=== PATIENT | female | born 1945 | race Caucasian/White ===

== ENCOUNTER 2018-03-11 17:52 | Emergency (ER) | payer MEDICARE, BC ==
--- NOTE | 2018-03-11 18:26 | ER Document Report ---
ED Medical Screen (RME) - General Chief Complaint: Abnormal Lab Results Stated Complaint: ABNORMAL LABS Time Seen by Provider: 03/11/18 18:20 Notes: Patient is a 73-year-old female who presents after her primary care physician referred her to the ER due to her urine culture growing out Pseudomonas with multidrug resistance. She finished a course of Macrobid and is feeling much better. She is only having mild suprapubic pressure, but denies fevers, flank pain, nausea, vomiting or diarrhea. PE: Mild suprapubic tenderness, no CVA tenderness I have greeted and performed a rapid initial assessment of this patient. A comprehensive ED assessment and evaluation of the patient, analysis of test results and completion of the medical decision making process will be conducted by additional ED providers. TRAVEL OUTSIDE OF THE [place] IN LAST 30 DAYS: No - Related Data Allergies/Adverse Reactions: No Known Allergies Allergy (Verified 02/15/13 19:29) Past Medical History - Social History Chew tobacco use (# tins/day): No Frequency of alcohol use: None Drug Abuse: None - Past Medical History Cardiac Medical History: Reports: Hx Hypercholesterolemia, Hx Hypertension Endocrine Medical History: Reports: Hx Diabetes Mellitus Type 2 Renal/ Medical History: Denies: Hx Peritoneal Dialysis GI Medical History: Reports: Hx Crohn's Disease, Hx Diverticulitis, Hx Gastroesophageal Reflux Disease Musculoskeltal Medical History: Reports Hx Arthritis - RA Past Surgical History: Reports: Hx Bowel Surgery - 10 in bowel removed- diverticulitis, Hx Cholecystectomy, Hx Orthopedic Surgery - knee scope - Immunizations Immunizations up to date: Yes Hx Diphtheria, Pertussis, Tetanus Vaccination: Yes Physical Exam - Vital signs Vitals: Temp Pulse Resp BP Pulse Ox 98.4 F 72 20 123/85 95 03/11/18 18:05 03/11/18 18:05 03/11/18 18:05 03/11/18 18:05 03/11/18 18:05 Course - Vital Signs Vital signs: Temp Pulse Resp BP Pulse Ox 98.4 F 72 20 123/85 95 03/11/18 18:05 03/11/18 18:05 03/11/18 18:05 03/11/18 18:05 03/11/18 18:05
[2018-03-11 18:54] LABS: ABSOLUTE BASOPHILS # (AUTO) 0.1 10^3/uL (0.0-0.2); ABSOLUTE EOSINOPHILS # (AUTO) 0.1 10^3/uL (0.0-0.6); ABSOLUTE MONOCYTES (AUTO) 0.6 10^3/uL (0.1-1.4); EOSINOPHILS % (AUTO) 2.1 % (0-6); LYMPHOCYTES % (AUTO) 34.6 % (13-45); MEAN CORPUSCULAR HEMOGLOBIN 30.5 pg (27.0-33.4); MEAN CORPUSCULAR HGB CONC 34.2 g/dL (32.0-36.0); MEAN CORPUSCULAR VOLUME 89 fl (80-97); MONOCYTES % (AUTO) 10.8 % (3-13); PLATELET COUNT 247 10^3/uL (150-450); RED BLOOD COUNT 4.27 10^6/uL (3.72-5.28); RED CELL DISTRIBUTION WIDTH 13.2 % (11.5-14.0); SEGMENTED NEUTROPHILS % (AUTO) 51.5 % (42-78); TOTAL CELLS COUNTED % (AUTO) 100 %; WHITE BLOOD COUNT 5.9 10^3/uL (4.0-10.5)
[2018-03-11 18:57] LABS: APPEARANCE,URINE CLEAR; BILIRUBIN,URINE NEGATIVE (NEGATIVE); COLOR,URINE STRAW; GLUCOSE, URINE NEGATIVE (NEGATIVE); KETONES,URINE NEGATIVE (NEGATIVE); LEUKOCYTE ESTERASE,URINE NEGATIVE (NEGATIVE); NITRITE,URINE NEGATIVE (NEGATIVE); PROTEIN,URINE NEGATIVE (NEGATIVE); UROBILINOGEN,URINE NEGATIVE mg/dL (<2.0)
[2018-03-11 19:20] LABS: ALANINE AMINOTRANSFERASE 27 U/L (9-52); ALBUMIN 4.2 g/dL (3.5-5.0); ALKALINE PHOSPHATASE 54 U/L (38-126); ANION GAP 14 (5-19); ASPARTATE AMINO TRANSFERASE 26 U/L (14-36); BILIRUBIN,DIRECT 0.3 mg/dL (0.0-0.4); BILIRUBIN,TOTAL 0.5 mg/dL (0.2-1.3); BLOOD UREA NITROGEN 11 mg/dL (7-20); CALCIUM 9.9 mg/dL (8.4-10.2); CARBON DIOXIDE 26 mmol/L (22-30); CHLORIDE 106 mmol/L (98-107); GLUCOSE 100 mg/dL (75-110); SODIUM 145.5 mmol/L (137-145); TOTAL PROTEIN 7.8 g/dL (6.3-8.2)
--- NOTE | 2018-03-11 20:06 | ER Document Report ---
ED General - General Chief Complaint: Abnormal Lab Results Stated Complaint: ABNORMAL LABS Time Seen by Provider: 03/11/18 18:20 TRAVEL OUTSIDE OF THE [place] IN LAST 30 DAYS: No - HPI Patient complains to provider of: Possible UTI Notes: Patient coming in for evaluation of possible UTI. Patient states that his UTI has been on Macrobid went to her PCPs office and had a urine culture sent with results today showing [id number] Pseudomonas and therefore was encouraged to come to the ER for further evaluation and possible admission. Patient otherwise upon my evaluation feels well and states that she otherwise has not had any complaints possible slight pressure in the bladder area. Denies dysuria fever chills nausea vomiting diarrhea. Patient states she does feel better than when she did before taking the antibiotics. Denies history of multiple UTIs. I was able to review the culture results showing 10-50,000 colonies of Pseudomonas - Related Data Allergies/Adverse Reactions: No Known Allergies Allergy (Verified 03/11/18 18:26) Past Medical History - Social History Smoking Status: Never Smoker Chew tobacco use (# tins/day): No Frequency of alcohol use: None Drug Abuse: None Family History: Reviewed & Not Pertinent Patient has suicidal ideation: No Patient has homicidal ideation: No - Past Medical History Cardiac Medical History: Reports: Hx Hypercholesterolemia, Hx Hypertension Endocrine Medical History: Reports: Hx Diabetes Mellitus Type 2 Renal/ Medical History: Denies: Hx Peritoneal Dialysis GI Medical History: Reports: Hx Crohn's Disease, Hx Diverticulitis, Hx Gastroesophageal Reflux Disease Musculoskeltal Medical History: Reports Hx Arthritis - RA Past Surgical History: Reports: Hx Bowel Surgery - 10 in bowel removed- diverticulitis, Hx Cholecystectomy, Hx Orthopedic Surgery - knee scope - Immunizations Immunizations up to date: Yes Hx Diphtheria, Pertussis, Tetanus Vaccination: Yes Review of Systems - Review of Systems Constitutional: No symptoms reported EENT: No symptoms reported Cardiovascular: No symptoms reported Respiratory: No symptoms reported Gastrointestinal: No symptoms reported Genitourinary: Other - Abnormal labs bladder pressure Female Genitourinary: No symptoms reported Musculoskeletal: No symptoms reported Skin: No symptoms reported Hematologic/Lymphatic: No symptoms reported Neurological/Psychological: No symptoms reported -: Yes All other systems reviewed and negative Physical Exam - Vital signs Vitals: Temp Pulse Resp BP Pulse Ox 98.4 F 72 20 123/85 95 03/11/18 18:05 03/11/18 18:05 03/11/18 18:05 03/11/18 18:05 03/11/18 18:05 Interpretation: Normal - General General appearance: Appears well, Alert - HEENT Head: Normocephalic, Atraumatic Eyes: Normal Pupils: PERRL - Respiratory Respiratory status: No respiratory distress Chest status: Nontender Breath sounds: Normal Chest palpation: Normal - Cardiovascular Rhythm: Regular Heart sounds: Normal auscultation Murmur: No - Abdominal Inspection: Normal Distension: No distension Bowel sounds: Normal Tenderness: Nontender Organomegaly: No organomegaly - Back Back: Normal, Nontender - Extremities General upper extremity: Normal inspection, Nontender, Normal color, Normal ROM , Normal temperature General lower extremity: Normal inspection, Nontender, Normal color, Normal ROM , Normal temperature, Normal weight bearing. No: Thierno's sign - Neurological Neuro grossly intact: Yes Cognition: Normal Orientation: AAOx4 Samy Coma Scale Eye Opening: Spontaneous Samy Coma Scale Verbal: Oriented Samy Coma Scale Motor: Obeys Commands Samy Coma Scale Total: 15 Speech: Normal Motor strength normal: LUE, RUE, LLE, RLE Sensory: Normal - Psychological Associated symptoms: Normal affect, Normal mood - Skin Skin Temperature: Warm Skin Moisture: Dry Skin Color: Normal Course - Re-evaluation Re-evalutation: 03/11/18 23:01 Patient with no white count no fever with a urinalysis showing no nitrites no leukocyte esterase only 3 white blood cells and trace bacteria. At this time do not think this is consistent with infection however I do think it is prudent to reculture this urine. I did have a lengthy discussion with the patient and family at bedside I do not think at this time with lab work showing no leukocytosis and the patient being afebrile I would not admit her to the hospital for IV antibiotics I wait for the second culture results. I explained to the patient that we will call her with the culture results in approximately 48-72 hours. Patient did state understanding was grateful for care 03/11/18 23:01 - Vital Signs Vital signs: Temp Pulse Resp BP Pulse Ox 97.6 F 68 18 141/85 H 96 03/11/18 20:15 03/11/18 20:15 03/11/18 20:15 03/11/18 20:15 03/11/18 20:15 - Laboratory Result Diagrams: 03/11/18 18:45 03/11/18 18:45 Laboratory results interpreted by me: 03/11/18 18:45 Sodium 145.5 H Discharge - Discharge Clinical Impression: Abnormal laboratory test result Condition: Good Disposition: HOME, SELF-CARE Additional Instructions: Your urine culture from your primary care physician shows Pseudomonas however there is very few colonies on this report. Your laboratory studies today did not show any elevation in your white count your urinalysis does not show any signs of infection at this time. Your afebrile you have no signs of serious infection urinary tract infection or sepsis. I recommend that we repeat your urine culture this will be available in approximately 48-72 hours. If there is positive growth we will call you. In the meantime return to ER symptoms worsen follow-up with your primary care physician return to ER for a fever greater than 101 Referrals: ANNABELLE BARRAZA PA-C [Primary Care Provider] - Follow up as needed
[2018-03-11 20:16] VITALS: BP 141/85
== END 2018-03-11 20:16 | disposition home or self-care (01) ==
LOC: ER 17:52
DX: R82.90 Unspecified abnormal findings in urine (principal); E78.00 Pure hypercholesterolemia, unspecified; I10 Essential (primary) hypertension; E11.9 Type 2 diabetes mellitus without complications; Z87.440 Personal history of urinary (tract) infections; Z90.49 Acquired absence of other specified parts of digestive tract
CPT/HCPCS: 36415; 80053; 81001; 85025; 87086; 87088; 87186; 99283

== ENCOUNTER 2018-08-25 09:48 | Emergency (ER) | payer OTHER, MEDICARE, BC ==
[2018-08-25] MEDS ORDERED: ACETAMINOPHEN 325 MG TABLET PO ONE (10:11)
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
[2018-08-25 11:39] LABS: ABSOLUTE EOSINOPHILS # (AUTO) 0.1 10^3/uL (0.0-0.6); ABSOLUTE LYMPHOCYTES (AUTO) 1.3 10^3/uL (0.5-4.7); ABSOLUTE MONOCYTES (AUTO) 0.6 10^3/uL (0.1-1.4); ABSOLUTE NEUT (AUTO) 4.5 10^3/uL (1.7-8.2); BASOPHILS % (AUTO) 0.8 % (0-2); EOSINOPHILS % (AUTO) 1.5 % (0-6); HEMOGLOBIN 12.9 g/dL (12.0-15.5); MEAN CORPUSCULAR HEMOGLOBIN 30.9 pg (27.0-33.4); MEAN CORPUSCULAR VOLUME 91 fl (80-97); MONOCYTES % (AUTO) 9.8 % (3-13); PLATELET COUNT 242 10^3/uL (150-450); RED BLOOD COUNT 4.17 10^6/uL (3.72-5.28); RED CELL DISTRIBUTION WIDTH 13.5 % (11.5-14.0); SEGMENTED NEUTROPHILS % (AUTO) 68.9 % (42-78); TOTAL CELLS COUNTED % (AUTO) 100 %; WHITE BLOOD COUNT 6.6 10^3/uL (4.0-10.5)
[2018-08-25 11:57] LABS: ALANINE AMINOTRANSFERASE 20 U/L (9-52); ALBUMIN 3.9 g/dL (3.5-5.0); ALKALINE PHOSPHATASE 47 U/L (38-126); ANION GAP 11 (5-19); ASPARTATE AMINO TRANSFERASE 30 U/L (14-36); BILIRUBIN,DIRECT 0.2 mg/dL (0.0-0.4); BILIRUBIN,TOTAL 0.5 mg/dL (0.2-1.3); BLOOD UREA NITROGEN 14 mg/dL (7-20); CALCIUM 9.3 mg/dL (8.4-10.2); CARBON DIOXIDE 23 mmol/L (22-30); CHLORIDE 105 mmol/L (98-107); GLUCOSE 124 mg/dL (75-110); POTASSIUM 4.1 mmol/L (3.6-5.0); SODIUM 138.9 mmol/L (137-145); TOTAL PROTEIN 7.4 g/dL (6.3-8.2)
[2018-08-25 12:58] VITALS: BP 106/64
== END 2018-08-25 13:26 | disposition home or self-care (01) ==
LOC: ER 09:48
DX: S52.502A Unspecified fracture of the lower end of left radius, initial encounter for closed fracture (principal); S52.602A Unspecified fracture of lower end of left ulna, initial encounter for closed fracture; M54.2 Cervicalgia; R51 Headache; M25.561 Pain in right knee; M25.562 Pain in left knee; V87.7XXA Person injured in collision between other specified motor vehicles (traffic), initial encounter; I25.10 Atherosclerotic heart disease of native coronary artery without angina pectoris; I10 Essential (primary) hypertension; E11.9 Type 2 diabetes mellitus without complications
CPT/HCPCS: 36415; 70450; 72125; 80053; 85025; 99285

== ENCOUNTER 2018-09-03 10:55 | Observation (INO) | payer OTHER, MEDICARE, BC ==
[2018-08-31 13:05] LABS: HEMATOCRIT 36.6 % (36.0-47.0); HEMOGLOBIN 12.6 g/dL (12.0-15.5); MEAN CORPUSCULAR HEMOGLOBIN 31.6 pg (27.0-33.4); MEAN CORPUSCULAR HGB CONC 34.5 g/dL (32.0-36.0); MEAN CORPUSCULAR VOLUME 91 fl (80-97); PLATELET COUNT 318 10^3/uL (150-450); RED CELL DISTRIBUTION WIDTH 12.8 % (11.5-14.0); WHITE BLOOD COUNT 6.9 10^3/uL (4.0-10.5)
[2018-08-31 13:17] LABS: APPEARANCE,URINE CLEAR; BILIRUBIN,URINE NEGATIVE (NEGATIVE); COLOR,URINE YELLOW; GLUCOSE, URINE NEGATIVE (NEGATIVE); KETONES,URINE NEGATIVE (NEGATIVE); LEUKOCYTE ESTERASE,URINE NEGATIVE (NEGATIVE); NITRITE,URINE NEGATIVE (NEGATIVE); PROTEIN,URINE NEGATIVE (NEGATIVE); URINE SPECIFIC GRAVITY 1.028; UROBILINOGEN,URINE NEGATIVE mg/dL (<2.0)
--- NOTE | 2018-08-31 13:19 | RADIOLOGY REPORT (SQ) ---
EXAM DESCRIPTION: CHEST PA/LATERAL COMPLETED DATE/TIME: 08/31/2018 12:51 pm REASON FOR STUDY: PRE-OP COMPARISON: None. EXAM PARAMETERS: NUMBER OF VIEWS: two views TECHNIQUE: Digital Frontal and Lateral radiographic views of the chest acquired. RADIATION DOSE: NA LIMITATIONS: none FINDINGS: LUNGS AND PLEURA: No opacities, masses or pneumothorax. No pleural effusion. MEDIASTINUM AND HILAR STRUCTURES: No masses or contour abnormalities. HEART AND VASCULAR STRUCTURES: Heart normal size. No evidence for failure. BONES: No acute findings. HARDWARE: None in the chest. OTHER: No other significant finding. IMPRESSION: NO SIGNIFICANT RADIOGRAPHIC FINDING IN THE CHEST. TECHNICAL DOCUMENTATION: JOB ID: [id number] [employer]- All Rights Reserved Reading location - IP/workstation name: [email or web address]
[2018-08-31 13:22] LABS: ANION GAP 12 (5-19); BLOOD UREA NITROGEN 12 mg/dL (7-20); CALCIUM 10.2 mg/dL (8.4-10.2); CARBON DIOXIDE 30 mmol/L (22-30); CHLORIDE 103 mmol/L (98-107); GLUCOSE 150 mg/dL (75-110); POTASSIUM 4.1 mmol/L (3.6-5.0); SODIUM 145.2 mmol/L (137-145)
--- NOTE | 2018-09-01 08:22 | EKG REPORT ---
SEVERITY:- ABNORMAL ECG - SINUS RHYTHM MULTIFORM VENTRICULAR PREMATURE COMPLEXES INFERIOR INFARCT, AGE INDETERMINATE : Confirmed by: Candy Sales MD 01-Sep-2018 08:22:16
[~2018-09-03 10:55] MED LIST: CEFAZOLIN 2 GM/D5W RTU 2 GM/50 ML RTUPB IV PRN; LIDOCAINE 0.5% INJ-PF (5 MG/ML) 50 ML SDV SUBCUT PRN; NORMAL SALINE 1000 ML 1,000 ML IV PRN; SUCCINYLCHOLINE CHLORIDE INJ 200 MG/10 ML VIAL ONE
[2018-09-03] MEDS ORDERED: CEFAZOLIN 2 GM/D5W RTU 2 GM/50 ML RTUPB IV ONE (12:39)
[2018-09-03] MEDS ORDERED: MIDAZOLAM 2 MG/2 ML INJ ONE (12:56)
[2018-09-03] MEDS ORDERED: HYDROMORPHONE HCL INJ/PF 2 MG/ML AMPULE ONE (12:56)
[2018-09-03] MEDS ORDERED: FENTANYL CITRATE INJ/PF 100 MCG/2 ML AMPUL ONE (12:56)
[2018-09-03] MEDS ORDERED: ACETAMINOPHEN 1,000 MG/100 ML RTUPB IV ONE (12:57)
[2018-09-03] MEDS ORDERED: PROPOFOL INJ 200 MG/20 ML VIAL IV ONE (12:57)
[2018-09-03] MEDS: BUPIVACAINE HCL 0.5 % INJ/PF 30 ML SDV ONE ×2 (13:18→13:55)
[2018-09-03] MEDS ORDERED: EPHEDRINE SULFATE INJ 50 MG/1 ML AMPULE ONE (13:26)
[2018-09-03] MEDS ORDERED: FENTANYL CITRATE INJ/PF 100 MCG/2 ML AMPUL IV PRN ×3 (14:17→15:38)
[2018-09-03] MEDS ORDERED: PROMETHAZINE HCL INJ 25 MG/1 ML VIAL IV PRN (14:17)
[2018-09-03] MEDS ORDERED: DIPHENHYDRAMINE HCL 50 MG/ML VIAL IV PRN (14:17)
[2018-09-03] MEDS ORDERED: ONDANSETRON HCL INJ/PF 4 MG/2 ML SDV IV PRN ×3 (14:17→18:05)
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
--- NOTE | 2018-09-03 15:16 | RADIOLOGY REPORT (SQ) ---
EXAM DESCRIPTION: NO CHG FLUORO; WRIST LEFT 3 VIEWS COMPLETED DATE/TIME: 09/03/2018 3:05 pm REASON FOR STUDY: ORIF LEFT WRIST ASST W/ FLUORO IN OR S52.532A COLLES' FRACTURE OF LEFT RADIUS, IN IT FOR CLOS FX S52.692A OTH FRACTURE OF LOWER END OF LEFT ULNA, INIT FOR CL COMPARISON: None. FLUOROSCOPY TIME: 68 seconds 5 images saved to PACS. TECHNIQUE: Intra-operative images acquired during surgical procedure to evaluate progress. NUMBER OF IMAGES: 5 LIMITATIONS: None. FINDINGS: Selected images from plate and screw fixation of distal radial fracture. IMPRESSION: IMAGE(S) OBTAINED DURING PROCEDURE. COMMENT: Quality ID 145: Final reports for procedures using fluoroscopy that document radiation exp osure indices, or exposure time and number of fluorographic images (if radiation exposure indices are not available) Please consult full operative report of the attending physician for description of the procedure. TECHNICAL DOCUMENTATION: JOB ID: [id number] [employer]- All Rights Reserved Reading location - IP/workstation name: [email or web address]
[2018-09-03] MEDS: PROMETHAZINE HCL INJ 25 MG/1 ML VIAL ONE ×2 (15:27→17:00)
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
--- NOTE | 2018-09-03 15:40 | Discharge Summary ---
Discharge Summary (SDC) - Discharge Final Diagnosis: Right >3 Part Intra-articular Distal Radius Fracture Comminuted Distal Ulna Fracture Date of Surgery: 09/03/18 Discharge Date: 09/03/18 Condition: Good Treatment or Instructions: Schedule Follow Up w/ Dr. Ever Rothman @ [facility] to be seen in 10-14 days or as scheduled [place]: Busy: [place]: Ice and elevate Keep splint clean/dry/intact. If your fingers become numb please unwrap the [place] wrap but leave the splint in place, if the sensation does not return within 30 minutes please return to the emergency department. May begin finger range of motion attempting to make full fist. Please use ibuprofen (Motrin or Advil) 600-800 mg every 8 hours as needed for pain or fever. You may also use acetaminophen (Tylenol) 1000 mg every 4-6 hours as needed for pain or fever. Please be aware that many medications contain acetaminophen, do not exceed a total of 1000 mg of acetaminophen every 6 hours. If ibuprofen and acetaminophen are not sufficient for your pain you may take the Percocet/[place]. Please be aware that the Percocet/[place] [address] does contain Tylenol. Stool softener of choice when on pain medication. Referrals: ANNABELLE BARRAZA PA-C [Primary Care Provider] - Discharge Diet: As Tolerated Respiratory Treatments at Home: Deep Breathing/Coughing Discharge Activity: No Lifting Over 10 Pounds, No Lifting/Push/Pulling Report the Following to Your Physician Immediately: Fever over 101 Degrees, Unusual Bleeding, Redness, Swelling, Warmth, Increased Soreness
[2018-09-03] MEDS ORDERED: ONDANSETRON HCL INJ/PF 4 MG/2 ML SDV ONE (15:51)
--- NOTE | 2018-09-03 17:53 | Progress Note ---
Provider Note Provider Note: Patient had issues with postoperative nausea and hypoxemia requiring oxygen. At that point decision was made to admit the patient overnight for observation. We will consult the hospitalist for their recommendations.
--- NOTE | 2018-09-03 19:06 | EKG REPORT ---
SEVERITY:- ABNORMAL ECG - SINUS RHYTHM VENTRICULAR TRIGEMINY PROBABLE INFERIOR INFARCT, AGE INDETERMINATE : Confirmed by: Candy Sales MD 03-Sep-2018 19:06:19
[2018-09-03] MEDS ORDERED: HYDROMORPHONE HCL INJ/PF 2 MG/ML AMPULE IV PRN (19:53)
[2018-09-03] MEDS ORDERED: DEXTROSE 50%-WATER 25 GM/50 ML DISP.SYRIN IV PRN ×2 (19:55)
[2018-09-03] MEDS ORDERED: DEXTROSE 40% GEL 15 GM TUBE PO PRN ×2 (19:55)
[2018-09-03] MEDS ORDERED: GLUCAGON,HUMAN RECOMB 1 MG INJ IM PRN (19:55)
[2018-09-03] MEDS ORDERED: INSULIN LISPRO 100 UNIT/ML 3 ML VIAL SUBCUT PRN (19:55)
[2018-09-03] MEDS: HYDROCODONE/ACETAMINOPHEN 5-325 MG TABLET PO PRN (20:42)
[2018-09-03] MEDS: METFORMIN HCL 500 MG TABLET PO SCH (20:46)
[2018-09-03] MEDS: HEPARIN SOD (PORCINE) 5,000 UNIT/ML 1 ML SYRINGE SUBCUT SCH (21:28)
--- NOTE | 2018-09-03 22:10 | PDOC CONSULTATION ---
Consultation Consult Date: 09/03/18 Attending physician:: PEREZ MARTINEZ Consult reason:: Post op nausea and hypoxia History of Present Illness Admission Date/PCP: 09/03/18 19:18 ANNABELLE BARRAZA PA-C Patient complains of: Nausea and left upper extremity pain History of Present Illness: AJ STEPHENSON is a 73 year old female admitted under the orthopedic surgery. Patient came initially as an outpatient for orthopedic surgery as she has a right distal radius fracture; during the postoperative evaluation, noticed that the patient had severe and persistent nausea, antiemetics given in PACU. Patient was with nasal cannula and when it was removed patient's oxygen saturation was in the mid 80s, they were unable to wean the patient off the nasal cannula. When he went to see the patient her was at the bedside and tells me that usually this happens to her after her surgeries. Patient currently complains of left upper extremity severe pain but denies any nausea, vomiting, chills, respiratory symptoms, chest pain, abdominal pain, urinary or bowel movement changes. Past Medical History Cardiac Medical History: Reports: Coronary Artery Disease - Patient says he had a cardiac cath and stents placed, but they "collapsed", Myocardial Infarction - 2013, Hyperlipidema, Hypertension Pulmonary Medical History: Denies: Asthma, Bronchitis, Chronic Obstructive Pulmonary Disease (COPD), Pneumonia Neurological Medical History: Denies: Seizures Endocrine Medical History: Reports: Diabetes Mellitus Type 2 Malignancy Medical History: Reports: Colorectal Cancer - Surgery successfully GI Medical History: Reports: Crohn's Disease, Diverticulitis, Gastroesophageal Reflux Disease Musculoskeltal Medical History: Reports: Arthritis - RA and osteo Hematology: Reports: Anemia Past Surgical History Past Surgical History: Reports: Cholecystectomy, Hysterectomy, Orthopedic Surgery - knee scope, Other - Cataract surgery earlier this month. Social History Information Source: Relative Smoking Status: Never Smoker Frequency of Alcohol Use: None Hx Recreational Drug Use: No Hx Prescription Drug Abuse: No Family History Family History: Reviewed & Not Pertinent Family History: Father with history of rheumatoid arthritis, maternal grandmother with history of malignant tumor of the breast, maternal aunt with malignant neoplastic disease Parental Family History Reviewed: Yes - As above Children Family History Reviewed: NA Sibling(s) Family History Reviewed.: NA Medication/Allergy Home Medications: Rosuvastatin Calcium [Crestor 40 mg Tablet] 40 mg PO DAILY 04/16/13 Aspirin [Aspirin EC] 81 mg PO DAILY 03/11/18 Gabapentin 300 mg PO Q8 03/11/18 Amlodipine Besylate 5 mg PO DAILY 08/31/18 Lisinopril 20 mg PO DAILY 08/31/18 Metformin HCl 500 mg PO BIDBS 08/31/18 Hydrocodone/Acetaminophen [[place] 7.5-325 mg Tablet] 1 tab PO Q6 PRN #25 tablet 09/03/18 Isosorbide Mononitrate [Isosorbide Mononitrate ER] 30 mg PO DAILY 09/03/18 Metoprolol Succinate [Toprol Xl 25 mg Tab.sr] 25 mg PO DAILY 09/03/18 Ondansetron [Zofran Odt 4 mg Tablet] 4 mg PO Q6 PRN #30 tab.rapdis 09/03/18 Allergies/Adverse Reactions: atorvastatin [From Lipitor] Allergy (Verified 09/03/18 12:02) joints swell celecoxib [From Celebrex] Allergy (Verified 09/03/18 12:02) joints swell morphine Allergy (Verified 09/03/18 12:02) cognitive impairments Review of Systems Review of Systems: As outlined in the HPI, all others negative Physical Exam Vital Signs: Temp Pulse Resp BP Pulse Ox 97.7 F 88 16 125/57 L 97 09/03/18 18:05 09/03/18 18:05 09/03/18 18:05 09/03/18 18:05 09/03/18 18:05 Intake & Output 09/02/18 09/03/18 09/04/18 06:59 06:59 06:59 Intake Total 2150 Output Total 10 Balance 2140 Weight 62.6 kg Additional comments: General appearance: Well-developed, elderly, frail, alert and cooperative, and appears to be in no acute distress Head: Normocephalic Eyes: PEERL, EOMI, vision is grossly intact. Ears: External auditory canal and tympanic membranes clear, hearing mildly decreased. Nose: No nasal discharge. Throat: Oral cavity and pharynx normal. No inflammation, swelling, exudate or lesions. Neck: Neck supple, nontender without lymphadenopathy, masses or thyromegaly. Cardiac: Normal S1 and S2. No S3, S4 or murmurs. Rhythm is regular. There is no peripheral edema, cyanosis or pallor. Extremities are warm and well perfused. Capillary refill is less than 2 seconds. No carotid bruits. Lungs: Clear to auscultation and percussion without rales, rhonchi, wheezing or diminished breath sounds. Not using accessory muscles. Abdomen: Positive bowel sounds. Soft. Nondistended, nontender. No guarding or rebound. No masses. No hepatosplenomegaly Extremities: Left upper extremity with a splint and wrapped. Neurological: Cranial nerves II through XII grossly intact. Moves all extremities, left upper extremity with sling. Skin: Skin normal color, texture and turgor with no lesions or eruptions, warm and dry. Psychiatric: The mental examination revealed the patient was oriented to person , place, and time. The patient was able to demonstrate good judgment on recent , without hallucinations, abnormal affect or abnormal behaviors. Results Laboratory Results: 08/31/18 12:25 08/31/18 12:25 08/31/18 08/31/18 08/31/18 12:25 12:25 12:25 WBC 6.9 RBC 4.00 Hgb 12.6 Hct 36.6 MCV 91 MCH 31.6 MCHC 34.5 RDW 12.8 Plt Count 318 Sodium 145.2 H Potassium 4.1 Chloride 103 Carbon Dioxide 30 Anion Gap 12 BUN 12 Creatinine 0.61 Est GFR ( Amer) > 60 Est GFR (Non-Af Amer) > 60 Glucose 150 H POC Glucose Hemoglobin A1c % 6.0 Calcium 10.2 09/03/18 09/03/18 11:20 20:46 WBC RBC Hgb Hct MCV MCH MCHC RDW Plt Count Sodium Potassium Chloride Carbon Dioxide Anion Gap BUN Creatinine Est GFR ( Amer) Est GFR (Non-Af Amer) Glucose POC Glucose 129 H 160 H Hemoglobin A1c % Calcium Impressions: Chest X-Ray 08/31/18 12:39 IMPRESSION: NO SIGNIFICANT RADIOGRAPHIC FINDING IN THE CHEST. Fluoroscopy 09/03/18 00:00 IMPRESSION: IMAGE(S) OBTAINED DURING PROCEDURE. Wrist X-Ray 09/03/18 00:00 IMPRESSION: IMAGE(S) OBTAINED DURING PROCEDURE. Assessment & Plan - Diagnosis (1) Hypoxia Is this a current diagnosis for this admission?: Yes Plan: Today after left upper extremity orthopedic surgery, during the postoperative state in PACU patient was noted hypoxic when the oxygen via nasal cannula was removed, oxygen saturation in the mid 80s, I believe this is secondary to the anesthesia, will continue the patient with oxygen protocol tonight, will try to wean her off oxygen in the morning. So far patient was comfortable not on respiratory distress. (2) Coronary artery disease Is this a current diagnosis for this admission?: Yes Plan: Patient does not have any cardiac symptomatology, she can continue her home medications (3) Diabetes mellitus type 2 in nonobese Is this a current diagnosis for this admission?: Yes Plan: Accu-Cheks q. before meals and at bedtime, insulin lispro sliding scale and hypoglycemia protocol. Can resume home diabetic medications/on metformin. (4) Hypertension Qualifiers: Hypertension type: essential hypertension Qualified Code(s): I10 - Essential (primary) hypertension Is this a current diagnosis for this admission?: Yes Plan: Blood pressure 125/57. Patient is on lisinopril, metoprolol, amlodipine and isosorbide. Probably by the morning she can resume her home antihypertensive medications once her blood pressure can tolerate it. (5) Fracture of left distal radius Qualifiers: Encounter type: initial encounter Is this a current diagnosis for this admission?: Yes Plan: As per orthopedics. Added IV Dilaudid as the patient is complaining of severe pain. - Time Time Spent: 50 to 70 Minutes
[2018-09-04] MEDS: HYDROCODONE/ACETAMINOPHEN 5-325 MG TABLET PO PRN (05:39)
[2018-09-04] MEDS: HEPARIN SOD (PORCINE) 5,000 UNIT/ML 1 ML SYRINGE SUBCUT SCH ×2 (05:40→14:02)
[2018-09-04] MEDS: METFORMIN HCL 500 MG TABLET PO SCH (07:51)
[2018-09-04] MEDS ORDERED: IBUPROFEN 400 MG TABLET PO PRN (09:26)
[2018-09-04] MEDS ORDERED: (PENDING PHARMACY ID) (Lisinopril [Lisinopril] 20 MG) PO SCH (10:00)
[2018-09-04] MEDS ORDERED: AMLODIPINE BESYLATE 5 MG TABLET PO SCH (10:00)
[2018-09-04] MEDS ORDERED: LISINOPRIL 10 MG TABLET PO SCH (10:00)
[2018-09-04] MEDS ORDERED: METOPROLOL SUCCINATE 50 MG TAB.SR.24H PO SCH (10:00)
[2018-09-04] MEDS ORDERED: ROSUVASTATIN CALCIUM 40 MG PO SCH (10:00)
[2018-09-04] MEDS ORDERED: ISOSORBIDE MONONITRATE 30 MG TAB.ER.24H PO SCH (10:00)
[2018-09-04] MEDS ORDERED: METOPROLOL SUCCINATE 25 MG TAB.SR.24H PO SCH (10:00)
[2018-09-04] MEDS ORDERED: ASPIRIN 81 MG TABLET, ENT COATED PO SCH (10:00)
[2018-09-04] MEDS ORDERED: (PENDING PHARMACY ID) (Isosorbide Dinitrate [Isosorbide Dinitrate] 30 MG) PO SCH (10:00)
[2018-09-04 12:10] VITALS: BP 125/67
--- NOTE | 2018-09-04 14:34 | PDOC PROGRESS REPORT ---
Subjective Progress Note for:: 09/04/18 Subjective:: 09/03/18: AJ ESTRELLA is a 73 year old female admitted to the orthopedic surgery service of Dr. Ever Rothman. Patient was initially an outpatient for orthopedic reduction and fixation of a left distal radius fracture. Her surgical procedure went well, however, during the postoperative evaluation the PACU staff noticed that the patient had severe and persistent nausea, despite antiemetics given in PACU. Additionally she was somewhat hypoxic requiring supplemental oxygen via nasal cannula in order to maintain her oxygen saturation at a satisfactory level. She admits similar problems postoperatively in the past. She was evaluated by the hospitalist service for her nausea and hypoxia. At the time she was seen initially she was complaining severe left upper extremity pain but denied nausea, vomiting, chills, cough, dyspnea, chest pain, abdominal pain, diarrhea, dyspepsia, dysuria, urinary frequency, urinary urgency and hematuria. 09/04/18: Aj is feeling substantially better this morning with much improved pain control. She has been up in her bed and has been sitting up in her room as well as ambulating to and from the bathroom without difficulty. She continues to be asymptomatic with the exception of her left forearm/wrist pain and tingling/numbness in her left hand and fingers. At this point the patient is definitely medically stable and ready for discharge from the medical standpoint. She will be evaluated by Dr. Rothman as to her surgical stability for discharge. Reason For Visit: LEFT DISTAL RADIUS FRACTURE, HYPOXEMIA Physical Exam Vital Signs: Temp Pulse Resp BP Pulse Ox 98.7 F 101 H 18 125/67 92 09/04/18 12:08 09/04/18 12:08 09/04/18 12:08 09/04/18 12:08 09/04/18 12:08 Intake & Output 09/02/18 09/03/18 09/04/18 23:59 23:59 23:59 Intake Total 2150 600 Output Total 10 Balance 2140 600 Weight 62.6 kg 63.9 kg General appearance: PRESENT: no acute distress, cooperative, well-developed, well-nourished, other - Resting in bed Head exam: PRESENT: atraumatic, normocephalic Eye exam: PRESENT: conjunctiva pink, EOMI. ABSENT: nystagmus, periorbital swelling, scleral icterus Ear exam: ABSENT: bleeding, drainage, normal external ear exam Mouth exam: PRESENT: neck supple, tongue midline Neck exam: ABSENT: JVD, thyromegaly, tracheal deviation Respiratory exam: PRESENT: clear to auscultation janice, symmetrical, unlabored Cardiovascular exam: PRESENT: RRR. ABSENT: clicks, gallop, rubs Vascular exam: PRESENT: normal capillary refill. ABSENT: pallor GI/Abdominal exam: PRESENT: normal bowel sounds, soft Rectal exam: PRESENT: deferred Extremities exam: PRESENT: other - Left upper extremity is in a postoperative splint and arm sling. There is mild edema of the left fingers noted and sensation is slightly decreased in the left fingers and hand. Vascular function in the left hand is good with brisk capillary refill (less than 3 seconds), fingertips are janki pink with no evidence of cyanosis.. ABSENT: joint swelling, pedal edema Musculoskeletal exam: PRESENT: ambulatory. ABSENT: deformity, dislocation Neurological exam: PRESENT: alert, oriented to person, oriented to place, oriented to time, oriented to situation, CN II-XII grossly intact. ABSENT: motor sensory deficit Psychiatric exam: PRESENT: appropriate affect, normal mood Skin exam: ABSENT: jaundice, rash, urticaria Results Laboratory Results: 08/31/18 12:25 08/31/18 12:25 Impressions: Chest X-Ray 08/31/18 12:39 IMPRESSION: NO SIGNIFICANT RADIOGRAPHIC FINDING IN THE CHEST. Fluoroscopy 09/03/18 00:00 IMPRESSION: IMAGE(S) OBTAINED DURING PROCEDURE. Wrist X-Ray 09/03/18 00:00 IMPRESSION: IMAGE(S) OBTAINED DURING PROCEDURE. Assessment & Plan - Diagnosis (1) Hypoxia Is this a current diagnosis for this admission?: Yes Plan: Patient required O2 supplementation via nasal cannula and her immediate postsurgical course. After an interval of a few hours she no longer required nasal cannula oxygen support and had excellent pulse oxygen saturation measurements on room air. Her hypoxia is therefore determined to have been resolved. (2) Coronary artery disease Is this a current diagnosis for this admission?: Yes Plan: Patient has a history of coronary artery disease and in the face of hypoxia this could have been exacerbated. However since her symptoms have resolved and she has returned to her usual state of well-being, it would appear that she is no longer at risk of exacerbating her currently stable coronary artery disease. Patient will resume taking her usual medications for her coronary artery disease and no further treatment is planned for this problem at this time. (3) Diabetes mellitus type 2 in nonobese Is this a current diagnosis for this admission?: Yes Plan: Patient has history of type 2 diabetes mellitus. She will be continued on her usual (prehospital) medications for treatment of her diabetes. No further evaluation or treatment is planned for this problem. (4) Hypertension Qualifiers: Hypertension type: essential hypertension Qualified Code(s): I10 - Essential (primary) hypertension Is this a current diagnosis for this admission?: Yes Plan: Patient has a history of essential hypertension. She will resume taking her currently prescribed antihypertensive agents, with no further evaluation or treatment planned at this time. (5) Fracture of left distal radius Qualifiers: Encounter type: initial encounter Is this a current diagnosis for this admission?: Yes Plan: The patient's left distal radius fracture is being treated by Dr. Rothman. He performed a surgical reduction and fixation of her fracture in outpatient/same- day surgery on the afternoon of 09/03/2018. Patient's fracture has been well maintained in a postoperative splint and left arm sling. Further management of her left distal radius fracture will be left to the expertise of Dr. Rothman. - Time Time Spent with patient: 15-24 minutes Anticipated discharge: Home - Plan Summary Plan Summary: I would like to thank Dr. Rothman for allowing us to participate in Ms. Estrella' s care. She is medically stable for discharge. I will sign off at this point however should you need any further assistance please feel free to contact the hospitalist service at any time.
== END 2018-09-04 14:30 | disposition home or self-care (01) ==
LOC: OROUT 10:55 → 4N 18:14 → OROUT 19:16 → 4N 19:18
PROVIDERS: ADMIT Orthopaedic Surgery; ATTEND Orthopaedic Surgery
PROC: 0PSL34Z Reposition Left Ulna with Internal Fixation Device, Percutaneous Approach (ICD-10-PCS; 2018-09-03)
PROC: 0PSJ04Z Reposition Left Radius with Internal Fixation Device, Open Approach (ICD-10-PCS; principal; 2018-09-03 12:30)
DX: S52.572A Other intraarticular fracture of lower end of left radius, initial encounter for closed fracture (principal); S52.602A Unspecified fracture of lower end of left ulna, initial encounter for closed fracture; J95.89 Other postprocedural complications and disorders of respiratory system, not elsewhere classified; R09.02 Hypoxemia; K91.89 Other postprocedural complications and disorders of digestive system; R11.0 Nausea; Y83.8 Other surgical procedures as the cause of abnormal reaction of the patient, or of later complication, without mention of misadventure at the time of the procedure; E11.9 Type 2 diabetes mellitus without complications; I25.10 Atherosclerotic heart disease of native coronary artery without angina pectoris; M06.9 Rheumatoid arthritis, unspecified; I10 Essential (primary) hypertension; M19.90 Unspecified osteoarthritis, unspecified site; I25.2 Old myocardial infarction; Z85.038 Personal history of other malignant neoplasm of large intestine; Z95.5 Presence of coronary angioplasty implant and graft; Z90.49 Acquired absence of other specified parts of digestive tract
CPT/HCPCS: 25609; 25535; 93005 ×2; 36415; 82962 ×2; 85027; 80048; 81001; 83036; 71046; 73110; 93010 ×2; G0378 ×2; G0379; C1713 ×6; C1769; C9359; J2250; J3490 ×3; J1644 ×2; J3010; J1815; J1170 ×2; J2550; J0330; J2405; J2704; J0690; J0131; 00820